=== PATIENT | female | born 1965 | race Caucasian/White ===

== ENCOUNTER → 2018-06-06 18:46 | Outpatient (CLI) | payer MEDICARE, SELFPAY ==
[2018-06-06 18:57] LABS: Adenovirus F 40/41, stool Not Detected (NotDetected); Astrovirus Not Detected (NotDetected); Campylobacter Not Detected (NotDetected); Clostridium Difficile A/B, PCR Not Detected (NotDetected); Cryptosporidium Not Detected (NotDetected); Cyclospora Cayetanesis Not Detected (NotDetected); Entamoeba histolytica Not Detected (NotDetected); Enterotoxigenic E coli Not Detected (NotDetected); Giardia lamblia Not Detected (NotDetected); Norovirus Not Detected (NotDetected); Plesimonas Shigalloides, PCR Not Detected (NotDetected); Rotavirus A Not Detected (NotDetected); Salmonella, PCR Not Detected (NotDetected); Sapovirus Not Detected (NotDetected); Shiga-like toxin E coli Not Detected (NotDetected); Shigella Enterovasive E coli Not Detected (NotDetected); Vibrio Cholerae Not Detected (NotDetected); Vibrio, PCR Not Detected (NotDetected); Yersinia Entercolitica, PCR Not Detected (NotDetected)
[2018-06-06 21:02] LABS: Enteroaggregative E coli Detected (NotDetected); Enteropathogenic E coli Detected (NotDetected)
== END ==
PROVIDERS: PCP Family Medicine; Visit Provider Emergency Medicine
DX: R19.7 Diarrhea, unspecified (principal)
CPT/HCPCS: 87507

== ENCOUNTER → 2018-08-21 16:04 | Outpatient (CLI) | payer MEDICARE, SELFPAY ==
[2018-08-21 17:24] LABS: Basophils # 0.1 K/mm3 (0-0.2); Basophils % 0.6 % (0.1-2.0); Eosinophils # 0.2 K/mm3 (0.0-0.4); Eosinophils % 1.6 % (0.1-12.0); Hematocrit 38.2 % (37.0-47.0); Hemoglobin 11.9 g/dL (12.2-16.2); Lymphocytes # 8.3 K/mm3 (0.7-4.5); Lymphocytes % 59.1 % (10-50); Mean Corpuscular HGB Conc 31.2 g/dL (31.8-35.4); Mean Corpuscular Hemoglobin 28.6 pg (27.0-31.2); Mean Corpuscular Volume 91.8 fl (81-99); Mean Platelet Volume 6.8 fl (7.4-10.4); Monocytes # 0.4 K/mm3 (0.1-1.0); Monocytes % 3.1 % (1.7-9.3); Neutrophils % 35.6 % (37.0-80.0); Platelet Count 330 K/mm3 (142-424); Red Blood Count 4.16 M/mm3 (4.20-5.40)
[2018-08-21 17:27] LABS: MANUAL DIFFERENTIAL MANUAL DIFFERENTIAL (MANUAL DIFF)
[2018-08-21 18:12] LABS: Eosinophils % 1 % (0-3); Lymphocytes % 58 % (10-50); Monocytes % 4 % (2-9); Neutrophils % 37 % (42-76); Platelet Estimate Normal; Total Cells Counted 100
[2018-08-21 18:13] LABS: RBC Morphology Normal
[2018-08-21 18:32] LABS: Alanine Aminotransferase 31 U/L (12-78); Albumin Level 3.5 gm/dL (3.4-5.0); Albumin/Globulin Ratio 1.1 (1.1-1.8); Alkaline Phosphatase 92 U/L (46-116); Anion Gap 12.4 mEq/L (5-15); Aspartate Amino Transferase 10 U/L (15-37); Bilirubin,Total 0.2 mg/dL (0.2-1.0); Blood Urea Nitrogen 15 mg/dL (7-18); Calcium 8.9 mg/dL (8.5-10.1); Carbon Dioxide 27 mmol/L (21.0-32.0); Chloride 107 mmol/L (98-107); Estimated Glomerular Filt Rate 65 ml/min (>60); Ferritin 75 ng/mL (8-388); GFR (African American) 79 ML/MIN (>60); Globulin 3.2 gm/dl (1.3-3.2); Glucose 107 mg/dL (74-106); Potassium 4.4 mmoL/L (3.5-5.1); Sodium 142 mmol/L (136-145); Total Protein,Serum 6.7 gm/dL (6.4-8.2)
[2018-08-23 08:22] LABS: Iron 35 ug/dL (27-159); UIBC 256 ug/dL (131-425)
[2018-08-26 09:52] LABS: Iron Saturation 12 % (15-55)
== END ==
PROVIDERS: Visit Provider Internal Medicine Medical Oncology
DX: C91.90 Lymphoid leukemia, unspecified not having achieved remission (principal)
CPT/HCPCS: 36415; 80053; 82728; 83540; 83550; 85007; 85025

== ENCOUNTER 2018-09-02 09:28 | Outpatient (CLI) | payer MEDICARE, SELFPAY ==
[2018-09-02 09:28] VITALS: BMI 33.4
[2018-09-02 09:59] LABS: Phosphorous 4.3 mg/dL (2.4-4.9)
[2018-09-02 10:15] VITALS: BP 175/95; PULSE 80; RESP 20; TEMP 36.9; O2SAT 95
[2018-09-02 10:56] VITALS: BP 135/75; PULSE 68; RESP 20; TEMP 36.9; O2SAT 95
== END 2018-09-02 10:59 | disposition home or self-care (01) ==
LOC: INF 09:28
PROVIDERS: Visit Provider Internal Medicine Medical Oncology
DX: C91.90 Lymphoid leukemia, unspecified not having achieved remission (principal); Z98.84 Bariatric surgery status; D50.9 Iron deficiency anemia, unspecified; T45.4X5A Adverse effect of iron and its compounds, initial encounter
CPT/HCPCS: 84100; 96365; J1439

== ENCOUNTER 2018-09-10 10:09 | Outpatient (CLI) | payer MEDICARE, SELFPAY ==
[2018-09-10 10:14] VITALS: BMI 33.4
[2018-09-10 10:46] LABS: Phosphorous 3.8 mg/dL (2.4-4.9)
[2018-09-10 11:11] VITALS: BP 154/78; PULSE 71; RESP 18; O2SAT 97
[2018-09-10 11:50] VITALS: BP 175/90; PULSE 78; RESP 18
== END 2018-09-10 11:50 | disposition home or self-care (01) ==
LOC: INF 10:09
PROVIDERS: Visit Provider Internal Medicine Medical Oncology
DX: D50.9 Iron deficiency anemia, unspecified (principal); C91.90 Lymphoid leukemia, unspecified not having achieved remission; T45.4X5A Adverse effect of iron and its compounds, initial encounter
CPT/HCPCS: 84100; 96365; J1439

== ENCOUNTER 2018-12-27 09:48 | Emergency (ER) | payer MEDICARE, SELFPAY ==
[2018-12-27 09:54] VITALS: BP 150/84; PULSE 76; RESP 18; TEMP 36.5; O2SAT 99; BMI 30.1
--- NOTE | 2018-12-27 09:57 | XR_ITS ---
XR hand RT min 3V HISTORY: Fall landing on right hand. Pain at third fourth and fifth metacarpals. ITS.REASON: fall ORDERING PHYSICIAN: Maame Black APRN PATIENT AGE: 53 years COMPARISON: None TECHNIQUE: PA, Oblique and Lateral rightHand FINDINGS: No fracture or dislocation. No acute findings. Particular attention is directed to the metacarpals 3, 4, 5. No fracture evident. Vascular channel nutrient foramen accounts subtle lucency through the medial cortex fourth metacarpal There are some early arthritic changes-most evident at IP joint of thumb noting mild narrowing mild hypertrophic changes IP joint thumb. Scant subtle narrowing at the PIP joint of of third and fourth finger.. Borderline Narrowing the IP joint fifth finger. MCP joints intact.Accessory ossicles account for densities anterior to the second and fifth metacarpal heads. Metacarpals intact. Visualized carpal satisfactory . IMPRESSION...... ... 1. Right hand. No acute fracture or findings. . specifically metacarpals 3, 4, 5 intact . 2. mild degenerative changes most notable at the IP joint of thumb.
--- NOTE | 2018-12-27 09:57 | XR_ITS ---
XR knee LT 3V Ordering Physician: Maame Black APRN Patient Age: 53 years: Female HISTORY: ITS.REASON: fall . Right knee injury. Pain TECHNIQUE: 3 views right knee COMPARISON :No previous FINDINGS . . No definitive acute fracture.No osteochondral defect There are 3 or 4 small somewhat ovoid calcifications or fragments along the medial aspect the medial compartment. Suspect reflects some variations of chondrocalcinosis or possibly a dystrophic calcification... Cannot exclude some small loose bodies here but these seem to become less evident and lucent on the oblique views and lateral view.These seen on AP view but barely appreciable on the subsequent oblique view. Very low density. Suggestion of minor soft tissue swelling overlying this region. . Most prominent marginal osteophytes seen along the superior aspect of patellofemoral joint. Minimal marginal osteophytes is seen at the medial aspect of the joint-specifically at the medial aspect of medial femoral condyle. The joint spaces well-maintained. . Joint effusion evident at suprapatellar bursa. ...... IMPRESSION: ...... 1.... No discrete acute fracture. 2. There are 3 or 4 small discrete low-density calcifications seen along the medial margin of the joint on AP view only. These Very low density foci become barely appreciable oblique view. May reflect small areas of chondrocalcinosis or dystrophic calcification. Cannot exclude small loose bodies, but I see no donor site. . 3.. Generous marginal osteophytes at superior patellofemoral joint.. 4.. Minor degenerative changes left knee 5. Definite Joint effusion most evident suprapatella bursa. 6. Mild soft tissue swelling about the knee
[2018-12-27 10:00] VITALS: BP 150/84; PULSE 76; RESP 18; TEMP 36.5; O2SAT 99; BMI 29.9
--- NOTE | 2018-12-27 10:28 | PC.NURSE ---
MAXILLOFACIAL PATHOLOGY REVIEWING XRAYS WITH FRANCISCA MONTANA
--- NOTE | 2018-12-27 10:34 | HMH.EDUTC ---
[facility] [place] Clinical Impression: Right wrist sprain Qualifiers: Encounter type: initial encounter Qualified Code(s): S63.501A - Unspecified sprain of right wrist, initial encounter Left knee sprain Qualifiers: Encounter type: initial encounter Involved ligament of knee: unspecified ligament Qualified Code(s): S83.92XA - Sprain of unspecified site of left knee, initial encounter Disposition: Home, Self-Care Condition on Discharge: Good Instructions: DI for Muscle Strain Additional Instructions: Weightbearing as tolerated rest Ice with cold pack for 20 minutes remove 20 minutes may repeat for comfort Sean wrap for support and swelling. Be sure not too tight but not to lose either Elevate with ankle above your heart as much as possible to help reduce swelling and therefore pain Ibuprofen every 6 hours as needed for pain or inflammation. If needs something more you can take Tylenol every 4 hours as needed as long as her primary care has told he was okayed for you to take both. If improving any do not need to follow-up you can bring begin exercising 2-3 weeks after injury. Follow-up immediately if new or worsening symptoms or no noticeable improvement over the next 3-5 days. follow up with pcp Referrals: Lilliam Larkin [Primary Care Provider] - Time of Disposition: 10:41 Medical Decision Making - Nikolay Inquiry Pt receiving controlled substance: No Vital Signs: 12/27/18 09:54 12/27/18 10:00 Temperature 97.7 F 97.7 F Temperature Source Oral Oral Pulse Rate [Left Radial] 76 76 Respiratory Rate 18 18 Blood Pressure [Left Arm] 150/84 H 150/84 H Blood Pressure Mean [Left Arm] 106 106 Blood Pressure Source [Left Arm] Automatic Cuff Automatic Cuff Blood Pressure Position [Left Arm] Sitting Sitting 02 Sat by Pulse Oximetry 99 99 Oxygen Delivery Method Room Air Room Air Orders (Tests/Meds): ORDERS Category Date Time Status Knee XR left 3 views [XR knee LT 3V] Stat Exams 12/27/18 09:57 Taken XR hand RT min 3V Stat Exams 12/27/18 09:57 Taken [facility] [place] - General Chief complaint: Extremity Injury, Lower Stated complaint: AO fell, trouble walking rt hand pain Time Seen by Provider: 12/27/18 10:20 Mode of Arrival: Ambulatory Source of Information: Patient Limitations: No Limitations Description of Symptoms (Recalled from Triage Doc. by RN): C/O RT HAND AND LT KNEE INJURY FOLLOWING A FALL HEENT Symptoms (Recalled from RN notes): No Resp Symptoms (Recalled from RN notes): No Skin Symptoms (Recalled from RN notes): No MS Symptoms (Recalled from RN notes): Yes (RT HAND AND LT KNEE INJURY) Functional Status (Recalled from RN notes): N/A - History of Present Illness Provider Complaint: 53 yr old female status post fall yesterday. Patient states she fell on concrete landing on her left knee and catching herself with her right hand. Patient states today her left knee painful and hand hurts with movement. - Related Data Home Medications Medication Instructions Recorded Confirmed duloxetine 60 mg capsule,delayed 60 mg PO ONCE 09/07/17 09/17/18 release hydrochlorothiazide 25 mg tablet 12.5 mg PO QAM PRN 09/07/17 09/17/18 insulin glargine (U-300) conc. 300 44 unit SUB-Q HS ml 09/07/17 09/17/18 unit/mL (1.5 mL) subcutaneous pen metformin 1,000 mg tablet 1,000 mg PO BID 09/07/17 09/17/18 levothyroxine 137 mcg capsule 137 mcg PO DAILY 08/21/18 09/17/18 Previous Rx's Medication Instructions Recorded Azithromycin [Zithromax 250mg 250 mg PO DIRECTED #6 tab 09/17/18 tab] Benzonatate [Tessalon Perle 100mg 100 mg PO TID #30 cap 09/17/18 Cap] Allergies Allergy/AdvReac Type Severity Reaction Status Date / Time hydrochlorothiazide Allergy Unknown Verified 08/21/18 15:01 [From Dyazide] hydroxychloroquine Allergy Unknown Verified 08/21/18 15:01 [From Plaquenil] liraglutide [From Victoza] Allergy Unknown Verified 08/21/18 15:01 neomycin Allergy Unknown Verified 08/21/18 1
--- NOTE | 2018-12-27 10:37 | ED_ITS ---
[facility] – [place] Clinical Impression: Right wrist sprain Qualifiers: Encounter type: initial encounter Qualified Code(s): S63.501A - Unspecified sprain of right wrist, initial encounter Left knee sprain Qualifiers: Encounter type: initial encounter Involved ligament of knee: unspecified ligament Qualified Code(s): S83.92XA - Sprain of unspecified site of left knee, initial encounter Disposition: Home, Self-Care Condition on Discharge: Good Instructions: DI for Muscle Strain Additional Instructions: Weightbearing as tolerated rest Ice with cold pack for 20 minutes remove 20 minutes may repeat for comfort Sean wrap for support and swelling. Be sure not too tight but not to lose either Elevate with ankle above your heart as much as possible to help reduce swelling and therefore pain Ibuprofen every 6 hours as needed for pain or inflammation. If needs something more you can take Tylenol every 4 hours as needed as long as her primary care has told he was okayed for you to take both. If improving any do not need to follow-up you can bring begin exercising 2-3 weeks after injury. Follow-up immediately if new or worsening symptoms or no noticeable improvement over the next 3-5 days. follow up with pcp Referrals: Lilliam Larkin [Primary Care Provider] - Time of Disposition: 10:41 Medical Decision Making - Nikolay Inquiry Pt receiving controlled substance: No Vital Signs: 12/27/18 09:54 12/27/18 10:00 Temperature 97.7 F 97.7 F Temperature Source Oral Oral Pulse Rate [Left Radial] 76 76 Respiratory Rate 18 18 Blood Pressure [Left Arm] 150/84 H 150/84 H Blood Pressure Mean [Left Arm] 106 106 Blood Pressure Source [Left Arm] Automatic Cuff Automatic Cuff Blood Pressure Position [Left Arm] Sitting Sitting 02 Sat by Pulse Oximetry 99 99 Oxygen Delivery Method Room Air Room Air Orders (Tests/Meds): ORDERS Category Date Time Status Knee XR left 3 views [XR knee LT 3V] Stat Exams 12/27/18 09:57 Taken XR hand RT min 3V Stat Exams 12/27/18 09:57 Taken [facility] [place] HPI - General Chief complaint: Extremity Injury, Lower Stated complaint: AO fell, trouble walking rt hand pain Time Seen by Provider: 12/27/18 10:20 Mode of Arrival: Ambulatory Source of Information: Patient Limitations: No Limitations Description of Symptoms (Recalled from Triage Doc. by RN): C/O RT HAND AND LT KNEE INJURY FOLLOWING A FALL HEENT Symptoms (Recalled from RN notes): No Resp Symptoms (Recalled from RN notes): No Skin Symptoms (Recalled from RN notes): No MS Symptoms (Recalled from RN notes): Yes (RT HAND AND LT KNEE INJURY) Functional Status (Recalled from RN notes): N/A - History of Present Illness Provider Complaint: 53 yr old female status post fall yesterday. Patient states she fell on concrete landing on her left knee and catching herself with her right hand. Patient states today her left knee painful and hand hurts with movement. - Related Data Home Medications Medication Instructions Recorded Confirmed duloxetine 60 mg capsule,delayed 60 mg PO ONCE 09/07/17 09/17/18 release hydrochlorothiazide 25 mg tablet 12.5 mg PO QAM PRN 09/07/17 09/17/18 insulin glargine (U-300) conc. 300 44 unit SUB-Q HS ml 09/07/17 09/17/18 unit/mL (1.5 mL) subcutaneous pen metformin 1,
[2018-12-27 10:45] VITALS: BP 150/84; PULSE 76; RESP 18; TEMP 36.5; O2SAT 99
== END 2018-12-27 10:45 | disposition home or self-care (01) ==
PROVIDERS: Emergency Provider Nurse Practitioner Family; PCP Family Medicine
DX: S63.501A Unspecified sprain of right wrist, initial encounter (principal); S83.92XA Sprain of unspecified site of left knee, initial encounter; E03.9 Hypothyroidism, unspecified; F32.9 Major depressive disorder, single episode, unspecified; E11.9 Type 2 diabetes mellitus without complications; Z79.84 Long term (current) use of oral hypoglycemic drugs; Z88.0 Allergy status to penicillin; W01.0XXA Fall on same level from slipping, tripping and stumbling without subsequent striking against object, initial encounter; Y92.019 Unspecified place in single-family (private) house as the place of occurrence of the external cause
CPT/HCPCS: G0463; 73130; 73562; 99201

== ENCOUNTER → 2020-02-22 09:44 | Outpatient (CLI) | payer MEDICARE, SELFPAY ==
[2020-02-22 10:05] LABS: Basophils # 0.1 K/mm3 (0-0.2); Basophils % 0.7 % (0.1-2.0); Eosinophils # 0.4 K/mm3 (0.0-0.4); Eosinophils % 3.5 % (0.1-12.0); Hematocrit 40.4 % (37.0-47.0); Hemoglobin 13.2 g/dL (12.2-16.2); Lymphocytes # 7.3 K/mm3 (0.7-4.5); Lymphocytes % 64.4 % (10-50); Mean Corpuscular HGB Conc 32.6 g/dL (31.8-35.4); Mean Corpuscular Hemoglobin 31.1 pg (27.0-31.2); Mean Corpuscular Volume 95.2 fl (81-99); Mean Platelet Volume 7.8 fl (7.4-10.4); Monocytes # 0.4 K/mm3 (0.1-1.0); Monocytes % 3.8 % (1.7-9.3); Neutrophils # 3.1 K/mm3 (1.8-7.8); Neutrophils % 27.5 % (37.0-80.0); Platelet Count 336 K/mm3 (142-424); Red Blood Count 4.24 M/mm3 (4.20-5.40); White Blood Count 11.3 K/mm3 (4.8-10.8)
[2020-02-22 10:06] LABS: MANUAL DIFFERENTIAL MANUAL DIFFERENTIAL (MANUAL DIFF)
[2020-02-22 10:57] LABS: Eosinophils % 2 % (0-3); Lymphocytes % 59 % (10-50); Monocytes % 4 % (2-9); Neutrophils % 35 % (42-76); Platelet Estimate Normal; RBC Morphology Normal; Total Cells Counted 100
== END ==
PROVIDERS: Visit Provider Internal Medicine Hematology & Oncology
DX: C91.90 Lymphoid leukemia, unspecified not having achieved remission (principal)
CPT/HCPCS: 36415; 85007; 85025

== ENCOUNTER 2022-02-17 14:20 | Emergency (ER) | payer MEDICARE, SELFPAY ==
[2022-02-17 14:41] VITALS: BP 137/92; PULSE 87; RESP 16; TEMP 36.7; O2SAT 95; BMI 27.3
--- NOTE | 2022-02-17 14:43 | XR_ITS ---
PROCEDURE INFORMATION: Exam: XR Chest Exam date and time: 02/17/2022 3:07 PM Age: 56 years old Clinical indication: Cough and orthopnea (sob when lying down); Patient HX: Cough x days, orthopnea TECHNIQUE: Imaging protocol: Radiologic exam of the chest. Views: 2 views. COMPARISON: CR CXR2V XR chest 2V 09/17/2018 3:33 AM FINDINGS: Lungs: Subcentimeter calcified granuloma left upper lobe. Pleural spaces: Unremarkable. No pleural effusion. No pneumothorax. Heart/Mediastinum: Unremarkable. No cardiomegaly. Bones/joints: Mild rotoscoliosis. Multiple anterior wedge compression fractures of thoracic and lumbar vertebral bodies, unchanged compared to the prior study IMPRESSION: No evidence for acute cardiopulmonary process.
--- NOTE | 2022-02-17 15:11 | HMH.EDUTC ---
[facility] – [place] Disposition Clinical Impression: Viral syndrome Acute bronchitis Qualifiers: Bronchitis organism: unspecified organism Qualified Code(s): J20.9 - Acute bronchitis, unspecified Disposition: Home, Self-Care Condition on Discharge: Good Instructions: DI for Acute Bronchitis, DI for COVID-19 (Suspected or Confirmed ), Preventing the Spread of Coronavirus Discharge Instructions Additional Instructions: Drink plenty of fluids. Take tylenol for pain or fever. Take the medications as directed. Follow up with your regular doctor. GO TO THE ER FOR ANY WORSENING SYMPTOMS Quarantine until you know the results of your covid-19 test. Notify your school or workplace of your results and follow their instructions regarding return to work/school. Don't start the oral steroids until tomorrow, since you had the shot here today. The cough medication (promethazine dm) will make you drowsy, so don't drive or operate heavy machinery after taking it. Prescriptions: Benzonatate [Benzonatate 100mg cap] 100 mg PO TIDP PRN #30 cap PRN Reason: Cough Transmission Status: Received by [id number] methylPREDNISolone [Medrol] 4 mg PO DIRECTED 6 Days #21 packet Transmission Status: Received by [id number] Cefdinir [Omnicef 300mg Capsule] 300 mg PO BID #20 cap Transmission Status: Received by [id number] Referrals: Lilliam Murray [Primary Care Provider] - Medical Decision Making - Medical Records Medical records reviewed: No: I reviewed the patient's medical records. - Nikolay Inquiry Pt receiving controlled substance: No Vital Signs: 02/17/22 14:41 Temperature 98.1 F Temperature Source Oral Pulse Rate [Left] 87 Respiratory Rate 16 Blood Pressure [Right Arm] 137/92 H Blood Pressure Mean [Right Arm] 107 02 Sat by Pulse Oximetry 95 - Lab Data Lab results reviewed: Yes: I reviewed the patient's lab results. Lab Results 02/17/22 14:39: Urine Color Dark yellow, Urine Appearance Clear, Urine pH 8.0, Ur Specific Milner 1.020, Urine Protein Trace, Urine Glucose (UA) Negative, Urine Ketones Trace, Urine Blood Negative, Urine Nitrate Negative, Urine Bilirubin Negative, Urine Urobilinogen 1, Ur Leukocyte Esterase 1+ A 02/17/22 14:43: Strep Scn Rapid Clinic Negative Orders (Tests/Meds): ED MEDICATIONS Discontinued Medications Generic Name Dose Route Start Last Admin Trade Name David PRN Reason Stop Dose Admin Ceftriaxone Sodium 1 gm 02/17/22 15:50 02/17/22 16:03 Ceftriaxone 1gm Vial IM 02/17/22 15:51 1 gm ONCE ONE Administration Lidocaine HCl 0 ml 02/17/22 15:50 02/17/22 16:03 Lidocaine 1% 5ml Pf Vial IM 02/17/22 15:51 2 ml ONCE ONE Administration Methylprednisolone Sodium Succinate 125 mg 02/17/22 15:50 02/17/22 16:03 Methylprednisolone Sod Succ 125mg Vial IM 02/17/22 15:51 125 mg ONCE ONE Administration ORDERS Category Date Time Status Full Resp Panel w/COVID ([facility]) Routine Lab 02/17/22 15:50 Ordered Strep Screen Confirmation Stat Micro 02/17/22 14:39 Ordered Urine Culture Stat Micro 02/17/22 14:39 Received - Radiology Data #1 Image(s): Chest Image Reviewed: Yes I reviewed the patient's radiology image, Yes I have reviewed radiologist's interpretation Preliminary Findings: Normal/NAD, No Infiltrates Seen PROCEDURE INFORMATION: Exam: XR Chest Exam date and time: 02/17/2022 3:07 PM Age: 56 years old Clinical indication: Cough and orthopnea (sob when lying down); Patient HX: Cough x days, orthopnea TECHNIQUE: Imaging protocol: Radiologic exam of the chest. Views: 2 views. COMPARISON: CR CXR2V XR chest 2V 09/17/2018 3:33 AM FINDINGS: Lungs: Subcentimeter calcified granuloma left upper lobe. Pleural spaces: Unremarkable. No pleural effusion. No pneumothorax. Heart/Mediastinum: Unremarkable. No cardiomegaly. Bones/joints: Mild rotoscoliosis. Multiple anterior wedge compression
[2022-02-17 15:16] LABS: UTC Strep Screen (Rapid) Negative (Negative)
[2022-02-17 15:23] LABS: Apearance,Urine Clear (Clear); Bilirubin,Urine Negative (Negative); Blood, Urine Negative (Negative); Color,Urine Dark Yellow (Yellow); Glucose,Urine (UA) Negative (Negative); Ketones,Urine TRACE (Negative); Protein,Urine Trace (Negative)
[2022-02-17 15:24] LABS: UTC Leukocyte Esterase,Urine 1+ (Negative); UTC Nitrate,Urine Negative (Negative); Urobilinogen,Urine 1 EU/dl (0.2)
[2022-02-17 16:09] VITALS: BP 137/92; PULSE 87; RESP 16; TEMP 36.7
== END 2022-02-17 16:10 | disposition home or self-care (01) ==
PROVIDERS: Emergency Provider Nurse Practitioner Family; PCP Family Medicine
DX: B34.9 Viral infection, unspecified (principal); J20.9 Acute bronchitis, unspecified
CPT/HCPCS: 71046; 81003; 87086; 87880; 96372; 99212; G0463; J0696

== ENCOUNTER 2022-08-10 17:38 | Emergency (ER) | payer MEDICARE, SELFPAY ==
[2022-08-10 17:40] VITALS: BP 138/67; PULSE 78; RESP 18; TEMP 36.8; O2SAT 97; BMI 26.1
--- NOTE | 2022-08-10 18:24 | HMH.EDGENADL ---
Discharge Plan Disposition Patient Disposition: Home, Self-Care Prescriptions Prescriptions: No Action levothyroxine 137 mcg capsule 137 mcg PO DAILY metformin 1,000 mg tablet 1,000 mg PO BID insulin glargine U-300 conc [Toujeo SoloStar U-300 Insulin] 300 unit/mL (1.5 mL) insulin pen 44 unit SUB-Q HS Label Comments: At bedtime duloxetine [Cymbalta] 60 mg capsule,delayed release(DR/EC) 60 mg PO ONCE hydrochlorothiazide 25 mg tablet 12.5 mg PO QAM PRN (Reason: Fluid ) benzonatate 100 MG capsule 100 mg PO TID Qty: 30 0RF benzonatate 100 MG capsule 100 mg PO TIDP PRN (Reason: Cough) Qty: 30 0RF methylprednisolone 4 MG tablets,dose pack 4 mg PO DIRECTED 6 Days Qty: 21 0RF cefdinir 300 MG capsule 300 mg PO BID Qty: 20 0RF Referrals Follow up/Referrals: Lilliam Larkin [Primary Care Provider] - See instructions Activity Restrictions/Add. Instructions Additional Instructions/Restrictions: Today you had a soft tissue avulsion of the volar fat pad of your middle finger on your left hand. Hemostasis was achieved with topical Surgicel and pressure dressings. Please continue wound management as discussed at home and return with any concerning symptoms. Clinical Impressions Clinical Impression: Soft tissue avulsion Instructions Patient Instructions: DI for Laceration Repair Discharge ED Provider: Antonio Durham General Adult HPI General Chief complaint: Wound/Laceration Stated complaint: ao 08/10@home lac to l middle finger Time Seen by Provider: 08/10/22 18:24 Mode of Arrival: Ambulatory Source of Information: Patient Limitations: No Limitations Description of Symptoms (Recalled from ER Triage Doc. by RN): 57 F presents after slicing the distal left digit on a meatcutter at home. Bleeding is moderately controlled with dressing. This occurred around 1530/1600 today. Patient unsure of last Tetanus. 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 Pain is minimal only reason she came to the emergency department today is because she was unable to get the bleeding stopped. She has tried direct pressure and nothing else. Related Data Home Medications Medication Instructions Recorded Confirmed duloxetine 60 mg capsule,delayed 60 mg PO ONCE Depression 09/07/17 02/19/19 release (Cymbalta) hydrochlorothiazide 25 mg tablet 12.5 mg PO QAM PRN Fluid 09/07/17 02/19/19 insulin glargine U-300 conc 300 44 unit SUB-Q HS DM 09/07/17 02/19/19 unit/mL (1.5 mL) subcutaneous pen (Tounayo SoloStar U-300 Insulin) metformin 1,000 mg tablet 1,000 mg PO BID DM 09/07/17 02/17/22 levothyroxine 137 mcg capsule 137 mcg PO DAILY thyroid 08/21/18 02/19/19 Previous Rx's Medication Instructions Recorded benzonatate 100 mg capsule 100 mg PO TID #30 caps 09/17/18 benzonatate 100 mg capsule 100 mg PO TIDP PRN Cough #30 caps 02/17/22 cefdinir 300 mg capsule 300 mg PO BID #20 caps 02/17/22 methylprednisolone 4 mg tablets in 4 mg PO DIRECTED 6 days #21 02/17/22 a dose pack packets Allergies Allergy/AdvReac Type Severity Reaction Status Date / Time hydrochlorothiazide Allergy Unknown Verified 02/17/22 14:46 [From Dyazide] hydroxychloroquine Allergy Unknown Verified 02/17/22 14:46 [From Plaquenil] liraglutide [From Victoza] Allergy Unknown Verified 02/17/22 14:46 neomycin Allergy Unknown Verified 02/17/22 14:46 Penicillins Allergy Unknown Verified 02/17/22 14:46 triamterene [From Dyazide] Allergy Unknown Verified 02/17/22 14:46 PFSH PFSH Disclaimer: The information contained in this section may have been updated after the patient was seen, as this information can be updated by other users. Social History Smoking Status: Current every day smoker alcohol
[2022-08-10 19:06] VITALS: BP 143/69; PULSE 76; RESP 17; TEMP 36.7; O2SAT 97
== END 2022-08-10 19:09 | disposition home or self-care (01) ==
PROVIDERS: Emergency Provider Student in an Organized Health Care Education/Training Program; PCP Family Medicine
DX: S61.203A Unspecified open wound of left middle finger without damage to nail, initial encounter (principal); F17.210 Nicotine dependence, cigarettes, uncomplicated; W27.4XXA Contact with kitchen utensil, initial encounter; Z23 Encounter for immunization
CPT/HCPCS: 90471; 90714; 99283; 99284

== ENCOUNTER 2023-06-29 13:01 | Emergency (ER) | payer MEDICARE, SELFPAY ==
[2023-06-29 15:40] VITALS: BP 108/71; PULSE 86; RESP 18; TEMP 37; O2SAT 100; BMI 26.7
[2023-06-29 16:22] VITALS: BP 108/71; PULSE 86; RESP 18; TEMP 37; O2SAT 100
--- NOTE | 2023-06-29 16:25 | EXP.UTC ---
Discharge Plan Disposition Patient Disposition: Home, Self-Care Condition: Good Prescriptions Prescriptions: No Action levothyroxine 137 mcg capsule 137 mcg PO DAILY metformin 1,000 mg tablet 1,000 mg PO BID insulin glargine U-300 conc [Toujeo SoloStar U-300 Insulin] 300 unit/mL (1.5 mL) insulin pen 44 unit SUB-Q HS Patient Comments: At bedtime duloxetine [Cymbalta] 60 mg capsule,delayed release(DR/EC) 60 mg PO ONCE hydrochlorothiazide 25 mg tablet 12.5 mg PO QAM PRN (Reason: Fluid ) benzonatate 100 MG capsule 100 mg PO TID Qty: 30 0RF benzonatate 100 MG capsule 100 mg PO TIDP PRN (Reason: Cough) Qty: 30 0RF methylprednisolone 4 MG tablets,dose pack 4 mg PO DIRECTED 6 Days Qty: 21 0RF cefdinir 300 MG capsule 300 mg PO BID Qty: 20 0RF Referrals Follow up/Referrals: Lilliam Birch MD [Primary Care Provider] - See instructions Activity Restrictions/Add. Instructions Additional Instructions/Restrictions: Finish antibiotics. If symptoms persist or worsen, return to the ER. Follow up next week with PCP. Clinical Impressions Clinical Impression: Acute cellulitis Instructions Patient Instructions: DI for Cellulitis -- Adult Discharge ED Provider: Allyssa Ag [facility] General Stated complaint: celulitus in right hand Mode of Arrival: Ambulatory Source of Information: Patient Limitations: No Limitations Time Seen by Provider: 06/29/23 16:12 Description of Symptoms (Recalled from Triage Doc. by RN): PATIENT C/O SWELLING AND REDNESS TO RIGHT MIDDLE FINGER X 2 DAYS HEENT Symptoms (Recalled from RN notes): No Resp Symptoms (Recalled from RN notes): No Skin Symptoms (Recalled from RN notes): Yes MS Symptoms (Recalled from RN notes): No Functional Status (Recalled from RN notes): WNL History of Present Illness Provider Complaint: right middle finger redness and swelling for 2 days. She reports that she had an arthritic cyst on her right middle finger that she tried to pop and it became swollen, hot, red, and painful. She had a visit with her PCP who prescribed her Bactrim. She relates that she has taken a dose today, but is in a lot of pain. She take Meloxicam daily. Related Data Home Medications Medication Instructions Recorded Confirmed duloxetine 60 mg capsule,delayed 60 mg PO ONCE Depression 09/07/17 02/19/19 release (Cymbalta) hydrochlorothiazide 25 mg tablet 12.5 mg PO QAM PRN Fluid 09/07/17 02/19/19 insulin glargine U-300 conc 300 44 unit SUB-Q HS DM 09/07/17 02/19/19 unit/mL (1.5 mL) subcutaneous pen (Tounayo SoloStar U-300 Insulin) metformin 1,000 mg tablet 1,000 mg PO BID DM 09/07/17 02/17/22 levothyroxine 137 mcg capsule 137 mcg PO DAILY thyroid 08/21/18 02/19/19 Previous Rx's Medication Instructions Recorded benzonatate 100 mg capsule 100 mg PO TID #30 caps 09/17/18 benzonatate 100 mg capsule 100 mg PO TIDP PRN Cough #30 caps 02/17/22 cefdinir 300 mg capsule 300 mg PO BID #20 caps 02/17/22 methylprednisolone 4 mg tablets in 4 mg PO DIRECTED 6 days #21 02/17/22 a dose pack packets Allergies Allergy/AdvReac Type Severity Reaction Status Date / Time hydrochlorothiazide Allergy Unknown Verified 02/17/22 14:46 [From Dyazide] hydroxychloroquine Allergy Unknown Verified 02/17/22 14:46 [From Plaquenil] liraglutide [From Victoza] Allergy Unknown Verified 02/17/22 14:46 neomycin Allergy Unknown Verified 02/17/22 14:46 Penicillins Allergy Unknown Verified 02/17/22 14:46 triamterene [From Dyazide] Allergy Unknown Verified 02/17/22 14:46 nickel Allergy Verified 06/29/23 15:58 Worker's Comp Is this a Worker's Comp case?: No [facility] Disclaimer: The information contained in this section may have been updated after the patient was seen, as this information can be updated by other users. Medical History (Updated 06/29/23 @ 16:42 by Allyssa Ag APRN) Diabetes mellitus, type 2 Social Histo
== END 2023-06-29 17:10 | disposition home or self-care (01) ==
PROVIDERS: Emergency Provider Nurse Practitioner Family; PCP Family Medicine
DX: L03.011 Cellulitis of right finger (principal); E11.9 Type 2 diabetes mellitus without complications; F17.210 Nicotine dependence, cigarettes, uncomplicated; Z79.4 Long term (current) use of insulin; Z79.84 Long term (current) use of oral hypoglycemic drugs
CPT/HCPCS: 96372; 99212; 99214; G0463; J0696

== ENCOUNTER 2024-07-21 18:41 | Emergency (ER) | payer MEDICARE, SELFPAY ==
[2024-07-21 18:42] VITALS: BP 170/90; PULSE 95; RESP 18; TEMP 37.1; O2SAT 99; BMI 26.1
--- NOTE | 2024-07-21 18:52 | ECG_ITS ---
APPROVED REPORT Exam: Resting ECG HR:91 bpm ECG Measurements Heart Rate 91 AXES RI 166 P 63 QRSd 98 QRS 34 QT 364 T 29 QTc 412 Conclusion SINUS RHYTHM MODERATE ST DEPRESSION [0.05+ mV ST DEPRESSION] No STEMI appreciated though artifact limits interpretation Electronically signed by : ZOILA ACEVES, 07/22/2024 03:14:57
--- NOTE | 2024-07-21 18:55 | ED_ITS ---
<Statement entered by Cherelle Cloud DO - 07/22/24 00:04> I was consulted by the CORNELIUS, and we discussed the complexity of the problems being addressed. I approved the treatment and management plan for this patient's care in the emergency department, thus performing a substantive portion of the medical decision making. Cherelle Cloud DO Discharge Plan Disposition Patient Disposition: Home, Self-Care Condition: Good Prescriptions Prescriptions: No Action levothyroxine 137 mcg capsule 137 mcg PO DAILY metformin 1,000 mg tablet 1,000 mg PO BID insulin glargine U-300 conc [Toujeo SoloStar U-300 Insulin] 300 unit/mL (1.5 mL) insulin pen 44 unit SUB-Q HS Patient Comments: At bedtime duloxetine [Cymbalta] 60 mg capsule,delayed release(DR/EC) 60 mg PO ONCE hydrochlorothiazide 25 mg tablet 12.5 mg PO QAM PRN (Reason: Fluid ) benzonatate 100 MG capsule 100 mg PO TID Qty: 30 0RF benzonatate 100 MG capsule 100 mg PO TIDP PRN (Reason: Cough) Qty: 30 0RF methylprednisolone 4 MG tablets,dose pack 4 mg PO DIRECTED 6 Days Qty: 21 0RF cefdinir 300 MG capsule 300 mg PO BID Qty: 20 0RF Referrals Follow up/Referrals: Carlos Bruno MD [Primary Care Provider] - See instructions Clinical Impressions Clinical Impression: Accidental overdose Print Language Print Language: Turkish Discharge ED Provider: Cherelle Cloud General Adult HPI General Chief complaint: Extremity Problem,Nontraumatic Stated complaint: INVOLUNTARY MOVEMENT Time Seen by Provider: 07/21/24 18:48 Mode of Arrival: EMS Source of Information: Patient Limitations: No Limitations Description of Symptoms (Recalled from ER Triage Doc. by RN): PT arrives via ems from home with c/o involuntary tremors, nausea and acid reflux. Pt states she thought she took a CBD gummy and instead it was a delta 9 gummy. EMS gave 4mg zofran IV 20g LAC History of Present Illness HPI narrative: Patient presents for perceived involuntary tremors. She additionally has nausea associated and heartburn. Patient thought that she took a CBD gummy and instead took a delta 9 gummy. I am unsure why the patient took either and the patient is in either. She has never had 1 before. She reports that she has involuntary tremors however at the time of my exam patient stops and starts when she is not focusing on it. She denies any chest pain fever chills hemoptysis hematochezia melena nausea vomiting diarrhea. Related Data Home Medications ?Medication ?Instructions ?Recorded ?Confirmed duloxetine 60 mg capsule,delayed 60 mg PO ONCE Depression 09/07/17 02/19/19 release (Cymbalta) hydrochlorothiazide 25 mg tablet 12.5 mg PO QAM PRN Fluid 09/07/17 02/19/19 insulin glargine U-300 conc 300 44 unit SUB-Q HS DM 09/07/17 02/19/19 unit/mL (1.5 mL) subcutaneous pen (Toujeo SoloStar U-300 Insulin) metformin 1,000 mg tablet 1,000 mg PO BID DM 09/07/17 02/17/22 levothyroxine 137 mcg capsule 137 mcg PO DAILY thyroid 08/21/18 02/19/19 Previous Rx's ?Medication ?Instructions ?Recorded benzonatate 100 mg capsule 100 mg PO TID #30 caps 09/17/18 benzonatate 100 mg capsule 100 mg PO TIDP PRN Cough #30 caps 02/17/22 cefdinir 300 mg capsule 300 mg PO BID #20 caps 02/17/22 methylprednisolone 4 mg tablets in 4 mg PO DIRECTED 6 days #21 02/17/22 a dose pack packets Allergies Allergy/AdvReac Type Severity Reaction Status Date / Time hydrochlorothiazide (From Allergy Unknown Verified 02/17/22 14:46 Dyazide) hydroxychloroquine (From Allergy Unknown Verified 02/17/22 14:46 Plaquenil) liraglutide (From Victoza) Allergy Unknown Verified 02/17/22 14:46 neomycin Allergy Unknown Verified 02/17/22 14:46 Penicillins Allergy Unknown Verified 02/17/22 14:46 triamterene (From Dyazide) Allergy Unknown Verified 02/17/22 14:46 nickel Allergy Verified 06/29/23 15:58 PFSH [facility] Disclaimer: The information contained in this section may have been updated after the patient was seen, as this information can be updated by other users. Medical History (Updated 07/21/24 @ 20:59 by CECY Kendall) Diabetes mellitus, type 2 Social History Smoking Status: Never smoker alcohol intake: never substance use type: denies use current occupational status: employed Travel in the last 8 weeks: None household members: family Have you lived/traveled outside [place] in past 30 days?: No Contact w/someone who lives/traveled outside US past 30 days?: No Exposure to someone with infectious disease in past 14 days?: No Do you have a fever (greater than 100.4 F or 38 C)?: No Have you tested positive for COVID-19: No Exposed to someone with COVID-19 in past 14 days?: No Do you have a sore throat?: No Do you have a cough?: No Do you have any weakness?: No Do you have any diarrhea?: No Are you experiencing any unusual bleeding?: No Do you have any muscle aches/pain?: No Do you have any abdominal pain?: No Are you experiencing loss of taste or smell?: No Other Medical History Have you received the Flu Vaccine for this season: Yes Have you received the Pneumonia Vaccine: Yes ROS Obtained: Yes Systems reviewed as appropriate & no additional complaints except as documented Physical Exam General General appearance: alert and appears intoxicated Respiratory Respiratory exam: Present normal lung sounds bilaterally Cardiovascular Cardiovascular exam: Present regular rate Abdominal Exam Abdominal exam: Present soft; Absent tenderness Neurological Exam Neurological exam: Present alert and CN II-XII intact; Absent oriented X3 Medical Decision Making Medical Records Medical records reviewed: Yes I reviewed the patient's medical records. Screening: Per USPSTF and CDC recommendations, given the prevalence of disease in our region, it is our hospital?s policy to screen for HIV and viral Hepatitis for all patients aged 18 and over and those with ongoing risk factors. Nikolay Inquiry Pt receiving controlled substance: No Vital Signs: 07/21/24 18:42 07/21/24 19:01 07/21/24 19:23 Temperature 98.7 F Temperature Source Oral Pulse Rate 95 H 92 H Pulse Rate [Right Radial] 95 H Respiratory Rate 18 Blood Pressure 199/99 H 183/101 H Blood Pressure [Right Arm] 170/90 H Blood Pressure Mean 121 128 Blood Pressure Mean [Right Arm] 116 Blood Pressure Source [Right Arm] Automatic Cuff Blood Pressure Position [Right Arm] Sitting 02 Sat by Pulse Oximetry 99 99 99 Oxygen Delivery Method Room Air Room Air Room Air Lab Data Lab results reviewed: Yes I reviewed the patient's lab results. Lab Results 07/21/24 18:50: WBC 13.0 H, RBC 3.90 L, Hgb 12.0 L, Hct 37.0, MCV 94.9, MCH 30.8, MCHC 32.4, RDW 12.3, Plt Count 310, MPV 9.5, Neut % (Auto) 26.4 L, Lymph % (Auto) 66.4 H, [place] % (Auto) 4.7, Eos % (Auto) 1.5, Baso % (Auto) 0.5, Neut # (Auto) 3.5, Lymph # (Auto) 8.6 H, [place] # (Auto) 0.6, Eos # (Auto) 0.2, Baso # (Auto) 0.1, Total Counted 100, Neutrophils % (Manual) 24 L, Lymphocytes % (Manual) 66 H, Atypical Lymphs % 6.0, Monocytes % (Manual) 3, Eosinophils % (Manual) 1, Platelet Estimate Normal, RBC Morphology Normal, ESR 14, Sodium 135 L, Potassium 3.9, Chloride 101, Carbon Dioxide 27, Anion Gap 10.9, BUN 21 H, Creatinine 0.90, Estimated Creat Clear 83, Estimated GFR 64, Est GFR ( Amer) 78, Glucose 152 H, Calcium 9.1, Total Bilirubin 0.2, AST 39 H, ALT 37, Alkaline Phosphatase 96, Total Creatine Kinase 52, C-Reactive Protein < 0.3, Total Protein 6.9, Albumin 4.3, Globulin 2.6, Albumin/Globulin Ratio 1.7 07/21/24 19:10: Magnesium 1.7, Troponin I < 0.01 07/21/24 19:12: VBG pH 7.42 H, VBG pCO2 36.1, VBG pO2 101.0 H, VBG HCO3 22.9 L, VBG Total CO2 24.1, VBG O2 Saturation 97.6 H, VBG Base Excess -1.5, VBG Lactic Acid 1.0 07/21/24 19:18: Urine Color Yellow, Urine Appearance Clear, Urine pH 6.0, Ur Specific [place] 1.020, Urine Protein Negative, Urine Glucose (UA) Negative, Urine Ketones Negative, Urine Blood Negative, Urine Nitrate Negative, Urine Bilirubin Negative, Urine Urobilinogen 0.2, Ur Leukocyte Esterase Negative, Urine WBC 5-10, Ur Squamous Epith Cells 5-10, Urine Bacteria 1+, Urine Opiates Screen Negative, Urine Methadone Screen Negative, Ur Barbituates Screen Negative, Ur Phencyclidine Scrn Negative, Ur Amphetamines Screen Negative, U Benzodiazepines Scrn Negative, Urine Cocaine Screen Negative, U Marijuana (THC) Screen Positive H 07/21/24 18:50 07/21/24 18:50 Orders (Tests/Meds): ED MEDICATIONS Discontinued Medications Generic Name Dose Route Start Last Admin Trade Name Freq PRN Reason Stop Dose Admin Diazepam 5 mg 07/21/24 20:04 07/21/24 20:10 Diazepam 10mg/2ml Syringe IV 07/21/24 20:05 5 mg ONCE ONE Administration Sodium Chloride 1,000 mls @ 999 mls/hr 07/21/24 19:09 07/21/24 20:07 Sod Chlor 0.9% 1000ml Bag IV 07/21/24 20:09 Not Given .Q1H1M ONE Lactated Ringer's 1,000 mls @ 999 mls/hr 07/21/24 19:09 07/21/24 19:20 Lactated Ringer's 1000 Ml Bag IV 07/21/24 20:09 999 mls/hr .Q1H1M ONE Administration Ketorolac Tromethamine 15 mg 07/21/24 19:09 07/21/24 19:20 Ketorolac 30mg/Ml Vial IV 07/21/24 19:10 15 mg ONCE ONE Administration ORDERS Category Date Time Status CT head/brain wo con Stat Cat Scan 07/21/24 19:51 Taken CBC w/Auto Diff [Complete Blood Count Auto Diff] Stat Lab 07/21/24 18:50 Completed CK [Creatine Kinase] Stat Lab 07/21/24 18:50 Completed CMP [Comprehensive Metabolic Panel] Stat Lab 07/21/24 18:50 Completed CRP [C-Reactive Protein] Stat Lab 07/21/24 18:50 Completed ESR [Erythrocyte Sedimentation Rate] Stat Lab 07/21/24 18:50 Completed Magnesium Stat Lab 07/21/24 19:10 Completed Trop I [Troponin I] Stat Lab 07/21/24 19:10 Completed Troponin I Q3H Lab 07/21/24 22:15 Ordered Troponin I Q3H Lab 07/22/24 01:15 Ordered UA [Urinalysis and Microscopic] Stat Lab 07/21/24 19:18 Completed UDS [Drug Screen,Urine] Stat Lab 07/21/24 19:18 Completed VBG [Venous Blood Gas] Stat RT 07/21/24 19:12 Completed Medical Decision Narrative: In summary Patient is a 59-year-old female presents for an advertent ingestion of delta 9 gummy and perceived uncontrollable tremors nausea and heartburn.. Patient is hypertensive on arrival at 170/90 heart rate 95 respiratory rate 18 satting at 99% on room air upon arrival, afebrile. Physical exam shows that she might be intoxicated as she has slight delayed responses, she has rapid movements of her arms and legs but when distracted it goes away. Breath sounds are clinical bilaterally to the bases cranial nerves II through XII are intact grossly to exam and pupils are dilated but reactive to light. Patient is normal sinus rhythm on bedside monitor sounds are clear with no increased work of breathing. Differential diagnosis includes therapeutic misadventure/inadvertent intoxication with delta 9 versus electrolyte disturbances versus central nervous system problem etc. etc. Initial workup will be conducted with hematologic labs UDS urinalysis CT the head without contrast. Initial interventions include crystalloid bolus, Valium and Zofran for now. Initial workup reviewed by me and her hematologic labs are nonactionable and my informed interpretation of CT scan of the head without contrast shows no acute processes prior to radiology read. Upon repeat evaluation had significant improvement in her constitutional symptoms after initial intervention, [place] Coma Score 15, patient no longer has subjective tremors, cranial nerves II through XII are intact grossly to exam. Given this patient is appropriate for discharge with care of her family and strict return precautions. Critical Care Critical Care Time Critical Care Time: Yes Attestation: On 07/21/24, the high probability of a clinically significant, sudden or life threatening deterioration of the following system: Cardiovascular, neurologic; required my full and direct attention, intervention and personal management. The time I documented below is in addition to time spent performing reported procedures but includes the following listed in this critical care notation. Total Time Total Critical Care Time: 30
--- NOTE | 2024-07-21 18:55 | ED_ITS ---
Discharge Plan Disposition Chief Complaint: Extremity Problem,Nontraumatic Prescriptions Prescriptions: No Action levothyroxine 137 mcg capsule 137 mcg PO DAILY metformin 1,000 mg tablet 1,000 mg PO BID insulin glargine U-300 conc [Toujeo SoloStar U-300 Insulin] 300 unit/mL (1.5 mL) insulin pen 44 unit SUB-Q HS Patient Comments: At bedtime duloxetine [Cymbalta] 60 mg capsule,delayed release(DR/EC) 60 mg PO ONCE hydrochlorothiazide 25 mg tablet 12.5 mg PO QAM PRN (Reason: Fluid ) benzonatate 100 MG capsule 100 mg PO TID Qty: 30 0RF benzonatate 100 MG capsule 100 mg PO TIDP PRN (Reason: Cough) Qty: 30 0RF methylprednisolone 4 MG tablets,dose pack 4 mg PO DIRECTED 6 Days Qty: 21 0RF cefdinir 300 MG capsule 300 mg PO BID Qty: 20 0RF Referrals Follow up/Referrals: Carlos Bruno MD [Primary Care Provider] - See instructions Print Language Print Language: Turkish Discharge ED Provider: Cherelle Cloud General Adult HPI General Chief complaint: Extremity Problem,Nontraumatic Stated complaint: INVOLUNTARY MOVEMENT Time Seen by Provider: 07/21/24 18:48 Mode of Arrival: EMS Source of Information: Patient Limitations: No Limitations Description of Symptoms (Recalled from ER Triage Doc. by RN): PT arrives via ems from home with c/o involuntary tremors, nausea and acid reflux. Pt states she thought she took a CBD gummy and instead it was a delta 9 gummy. EMS gave 4mg zofran IV 20g LAC Related Data Home Medications ?Medication ?Instructions ?Recorded ?Confirmed duloxetine 60 mg capsule,delayed 60 mg PO ONCE Depression 09/07/17 02/19/19 release (Cymbalta) hydrochlorothiazide 25 mg tablet 12.5 mg PO QAM PRN Fluid 09/07/17 02/19/19 insulin glargine U-300 conc 300 44 unit SUB-Q HS DM 09/07/17 02/19/19 unit/mL (1.5 mL) subcutaneous pen (Toujeo SoloStar U-300 Insulin) metformin 1,000 mg tablet 1,000 mg PO BID DM 09/07/17 02/17/22 levothyroxine 137 mcg capsule 137 mcg PO DAILY thyroid 08/21/18 02/19/19 Previous Rx's ?Medication ?Instructions ?Recorded benzonatate 100 mg capsule 100 mg PO TID #30 caps 09/17/18 benzonatate 100 mg capsule 100 mg PO TIDP PRN Cough #30 caps 02/17/22 cefdinir 300 mg capsule 300 mg PO BID #20 caps 02/17/22 methylprednisolone 4 mg tablets in 4 mg PO DIRECTED 6 days #21 02/17/22 a dose pack packets Allergies Allergy/AdvReac Type Severity Reaction Status Date / Time hydrochlorothiazide (From Allergy Unknown Verified 02/17/22 14:46 Dyazide) hydroxychloroquine (From Allergy Unknown Verified 02/17/22 14:46 Plaquenil) liraglutide (From Victoza) Allergy Unknown Verified 02/17/22 14:46 neomycin Allergy Unknown Verified 02/17/22 14:46 Penicillins Allergy Unknown Verified 02/17/22 14:46 triamterene (From Dyazide) Allergy Unknown Verified 02/17/22 14:46 nickel Allergy Verified 06/29/23 15:58 PFSH [facility] Disclaimer: The information contained in this section may have been updated after the patient was seen, as this information can be updated by other users. Medical History (Updated 06/29/23 @ 16:42 by Allyssa Ag APRN) Diabetes mellitus, type 2 Social History Smoking Status: Never smoker alcohol intake: never substance use type: denies use current occupational status: employed Travel in the last 8 weeks: None household members: family Other Medical History Have you received the Flu Vaccine for this season: Yes Have you received the Pneumonia Vaccine: Yes Medical Decision Making Medical Records Screening: Per USPSTF and CDC recommendations, given the prevalence of disease in our region, it is our hospital?s policy to screen for HIV and viral Hepatitis for all patients aged 18 and over and those with ongoing risk factors. Vital Signs: 07/21/24 18:42 Temperature 98.7 F Temperature Source Oral Pulse Rate [Right Radial] 95 H Respiratory Rate 18 Blood Pressure [Right Arm] 170/90 H Blood Pressure Mean [Right Arm] 116 Blood Pressure Source [Right Arm] Automatic Cuff Blood Pressure Position [Right Arm] Sitting 02 Sat by Pulse Oximetry 99 Oxygen Delivery Method Room Air ECG Data Tracing #1: I reviewed this ECG and interpreted as documented below: Normal sinus rhythm with a ventricular rate of [address]/T wave changes without acute STEMI. ECG initial impression date: 07/21/24 ECG initial impression time: 18:50
[2024-07-21 19:01] VITALS: BP 199/99; PULSE 95; O2SAT 99
--- NOTE | 2024-07-21 19:05 | PC.NURSE ---
tremors noted to all extremities.
[2024-07-21 19:19] LABS: Basophils # 0.1 K/mm3 (0-0.2); Basophils % 0.5 % (0.1-2.0); Eosinophils # 0.2 K/mm3 (0.0-0.4); Eosinophils % 1.5 % (0.1-12.0); Lymphocytes # 8.6 K/mm3 (0.7-4.5); Lymphocytes % 66.4 % (10-50); Mean Corpuscular HGB Conc 32.4 g/dL (31.8-35.4); Mean Corpuscular Hemoglobin 30.8 pg (27.0-31.2); Mean Corpuscular Volume 94.9 fl (81-99); Mean Platelet Volume 9.5 fl (7.4-10.4); Monocytes # 0.6 K/mm3 (0.1-1.0); Monocytes % 4.7 % (1.7-9.3); Neutrophils # 3.5 K/mm3 (1.8-7.8); Neutrophils % 26.4 % (37.0-80.0); Platelet Count 310 K/mm3 (142-424); Red Cell Distribution Width 12.3 % (11.5-17.5)
[2024-07-21] MEDS: KETOROLAC 30MG/ML VIAL 15 MG IV (19:20)
[2024-07-21] MEDS: LACTATED RINGERS 1000ML 1,000 ML 999 ML IV (19:20)
[2024-07-21 19:22] LABS: Microscopic, Urine URINE MICROSCOPIC (MICROSCOPIC)
[2024-07-21 19:22] LABS: MANUAL DIFFERENTIAL MANUAL DIFFERENTIAL (MANUAL DIFF)
[2024-07-21 19:23] VITALS: BP 183/101; PULSE 92; O2SAT 99
[2024-07-21 19:24] LABS: Albumin Level 4.3 g/dl (3.5-5.0); Chloride 101 mmol/L (98-107); Potassium 3.9 mmoL/L (3.5-5.1); Sodium 135 mmol/L (136-145)
[2024-07-21 19:26] LABS: Magnesium 1.7 mg/dl (1.6-2.3)
[2024-07-21 19:26] LABS: Alanine Aminotransferase 37 U/L (12-78); Albumin/Globulin Ratio 1.7 (1.1-1.8); Alkaline Phosphatase 96 U/L (38-126); Anion Gap 10.9 mEq/L (5-15); Aspartate Amino Transferase 39 U/L (14-36); Bilirubin,Total 0.2 mg/dl (0.2-1.3); Blood Urea Nitrogen 21 mg/dl (7-17); Carbon Dioxide 27 mmol/L (22.0-30.0); Creatinine Clearance Estimated 83 mL/min (50-200); Estimated Glomerular Filt Rate 64 ml/min (>60); GFR (African American) 78 ML/MIN (>60); Globulin 2.6 g/dL (1.3-3.2); Total Protein,Serum 6.9 g/dl (6.3-8.2)
[2024-07-21 19:27] LABS: Calcium 9.1 mg/dl (8.4-10.2); Creatine Kinase 52 U/L (30-135); Glucose 152 mg/dl (74-100)
[2024-07-21 19:32] LABS: Appearance,Urine CLEAR (Clear); Bilirubin,Urine Negative (Negative); Blood, Urine Negative (Negative); Color,Urine YELLOW (Yellow); Glucose,Urine (UA) Negative (Negative); Ketones,Urine Negative (Negative); Leukocyte Esterase,Urine Negative (Negative); Nitrate,Urine Negative (Negative); Protein,Urine Negative (Negative); Urobilinogen,Urine 0.2 EU/dl (0.2)
[2024-07-21 19:48] LABS: Amphetamine/Metha Screen,Urine Negative ng/ml (<1000)
[2024-07-21 19:48] LABS: Troponin I < 0.01 ng/ml (0.00-0.034)
[2024-07-21 19:49] LABS: Barbiturates Screen,Urine Negative ng/ml (<200)
--- NOTE | 2024-07-21 19:49 | PC.NURSE ---
rounded on pt. pt ambulated to bathroom. UA sent to lab
[2024-07-21 19:50] LABS: Benzodiazepines Screen,Urine Negative ng/ml (<200)
[2024-07-21 19:50] LABS: Erythrocyte Sedimentation Rate 14 mm/hr (0-30)
[2024-07-21 19:51] LABS: Cannabinoid Screen,Urine Positive ng/ml (<50)
--- NOTE | 2024-07-21 19:51 | CT_ITS ---
PROCEDURE INFORMATION: Exam: CT Head Without Contrast Exam date and time: 07/21/2024 8:25 PM Age: 59 years old Clinical indication: Other: Self-reported tremors TECHNIQUE: Imaging protocol: Computed tomography of the head without contrast. Radiation optimization: All CT scans at this facility use at least one of these dose optimization techniques: automated exposure control; mA and/or kV adjustment per patient size (includes targeted exams where dose is matched to clinical indication); or iterative reconstruction. COMPARISON: No relevant prior studies available. FINDINGS: Brain: There is moderate diffuse cerebral volume loss present. Multiple subcortical and deep hypoattenuating white matter foci are present, likely related to small vessel senescent changes and can also be seen with prior infectious / inflammatory insult, or prior traumatic events. No hyperattenuating foci are identified to suggest acute intracranial hemorrhage. Cerebral ventricles: No ventriculomegaly. Paranasal sinuses: Visualized sinuses are unremarkable. No fluid levels. Mastoid air cells: Visualized mastoid air cells are well aerated. Bones: Unremarkable. No acute fracture. Soft tissues: Unremarkable. IMPRESSION: 1. Multiple subcortical and deep hypoattenuating white matter foci are present, likely related to small vessel senescent changes and can also be seen with prior infectious / inflammatory insult, or prior traumatic events. 2. No hyperattenuating foci are identified to suggest acute intracranial hemorrhage.
[2024-07-21 19:52] LABS: Cocaine Screen,Urine Negative ng/ml (<300); Methadone Screen,Urine Negative ng/ml (<300)
[2024-07-21 19:53] LABS: Opiate Screen,Urine Negative ng/ml (<300); Phencyclidine Screen,Urine Negative ng/ml (<25)
[2024-07-21 20:01] LABS: VBG Base Excess -1.5 mmol/L (-2.4-2.3); VBG HCO3 22.9 mmol/L (23-30); VBG Oxygen Saturation 97.6 % (50-70); VBG PCO2 36.1 mmol/L (35-51); VBG PH 7.42 mmol/L (7.31-7.41); VBG Total CO2 24.1 mmol/L (23-27)
[2024-07-21 20:06] LABS: Eosinophils % 1 % (0-3); Lymphocytes % 66 % (10-50); Monocytes % 3 % (2-9); Neutrophils % 24 % (42-76); Total Cells Counted 100
[2024-07-21 20:08] LABS: Platelet Estimate Normal; RBC Morphology Normal
[2024-07-21] MEDS: diazePAM 10MG/2ML SYRINGE 5 MG IV (20:10)
[2024-07-21 20:17] LABS: C-Reactive Protein < 0.3 mg/L (0-4)
[2024-07-21 20:35] LABS: Bacteria,Urine 1+ /lpf
[2024-07-21 21:16] VITALS: BP 165/85; PULSE 77; RESP 95; TEMP 37
== END 2024-07-21 21:22 | disposition home or self-care (01) ==
PROVIDERS: Physician Assistant; Emergency Provider Emergency Medicine; PCP Family Medicine
DX: T50.901A Poisoning by unspecified drugs, medicaments and biological substances, accidental (unintentional), initial encounter (principal); R25.9 Unspecified abnormal involuntary movements
CPT/HCPCS: 70450; 80053; 80307; 81001; 82550; 82803; 83735; 84484; 85007; 85025; 85027; 85651; 86140; 93005; 96361; 96374; 96375; 99285; J1885; J3360; J7120